=== PATIENT | female | born 1980 | race Caucasian/White ===

== ENCOUNTER → 2021-04-07 | Outpatient (CLI) | payer OTHER | LOC: LAB 12:27 | DX: N39.0 Urinary tract infection, site not specified (principal); Z97.5 Presence of (intrauterine) contraceptive device ==

== ENCOUNTER → 2021-10-20 | Outpatient (CLI) | payer OTHER ==
[2021-10-20 12:57] LABS: BASO # 0.05 K/mm3 (0.02-0.10); EOS % 4.1 % (1.0-5.0); HEMATOCRIT 39.2 % (37.0-47.0); HEMOGLOBIN 12.6 g/dL (12.5-16.0); LYMPH# 2.03 K/mm3 (1.50-4.00); MEAN CELL VOLUME 83 fl (78-100); MEAN CORPUSCULAR HEMOGLOBIN 27 pg (27-31); MEAN CORPUSCULAR HGB CONC 32 g/dL (33-37); MONO # 0.54 K/mm3 (0.20-0.80); NEU # 4.31 K/mm3 (1.40-6.50); PLATELET COUNT 379 K/mm3 (130-400); RED BLOOD COUNT 4.75 M/mm3 (4.10-5.30); RED CELL DISTRIBUTION WIDTH 15.9 % (11.5-14.5); WHITE BLOOD COUNT 7.2 K/mm3 (4.8-10.8)
[2021-10-20 13:14] LABS: ALBUMIN 3.9 g/dL (3.5-5.0); POTASSIUM 4.1 mmol/L (3.5-5.1)
[2021-10-20 13:15] LABS: CALCIUM 9.5 mg/dL (8.3-10.5)
[2021-10-20 13:18] LABS: TOTAL BILIRUBIN 0.3 mg/dL (0.2-1.2)
== END ==
LOC: LAB 12:22
PROVIDERS: Family Medicine
DX: Z00.00 Encounter for general adult medical examination without abnormal findings (principal); E78.5 Hyperlipidemia, unspecified; F90.0 Attention-deficit hyperactivity disorder, predominantly inattentive type; I34.1 Nonrheumatic mitral (valve) prolapse; E66.01 Morbid (severe) obesity due to excess calories; M25.562 Pain in left knee; M25.561 Pain in right knee

== ENCOUNTER → 2022-03-31 | Outpatient (CLI) | payer OTHER | LOC: LAB 09:11 | DX: Z20.822 Contact with and (suspected) exposure to COVID-19 (principal) ==

== ENCOUNTER → 2022-04-12 | Outpatient (CLI) | payer OTHER | LOC: RAD 16:27 | DX: S89.92XA Unspecified injury of left lower leg, initial encounter (principal); X58.XXXA Exposure to other specified factors, initial encounter ==

== ENCOUNTER → 2023-04-14 | Outpatient (CLI) | payer OTHER | LOC: LAB 11:45 | DX: M51.9 Unspecified thoracic, thoracolumbar and lumbosacral intervertebral disc disorder (principal); E55.9 Vitamin D deficiency, unspecified ==

== ENCOUNTER 2023-07-14 06:29 | Emergency (ER) | payer OTHER ==
[~2023-07-14] VITALS: Ht 160 cm; Wt 104.5 kg
[~2023-07-14 06:29] MED LIST: DULOXETINE30 MG PO; MIXED AMPHETAMI15 M1 PO; ONDANSETRON HYDR4 MG PO; OXYCODONE HYDROC5 M1 PO; PREDNISONE20 M1 PO; TRAMADOL 50 MG TAB PO; ZANAFLEX4 M1 PO
[2023-07-14 07:52] LABS: BASO # 0.03 K/mm3 (0.02-0.10); EOS # 0.24 K/mm3 (0.04-0.40); EOS % 2.1 % (1.0-5.0); HEMATOCRIT 43.6 % (37.0-47.0); HEMOGLOBIN 14.5 g/dL (12.5-16.0); MEAN CELL VOLUME 89 fl (78-100); MEAN CORPUSCULAR HEMOGLOBIN 30 pg (27-31); MEAN CORPUSCULAR HGB CONC 33 g/dL (33-37); MEAN PLATELET VOLUME 9.7 fl (7.4-10.4); MONO # 0.81 K/mm3 (0.20-0.80); NEU # 8.22 K/mm3 (1.40-6.50); PLATELET COUNT 379 K/mm3 (130-400); RED BLOOD COUNT 4.88 M/mm3 (4.10-5.30); RED CELL DISTRIBUTION WIDTH 13.6 % (11.5-14.5); WHITE BLOOD COUNT 11.6 K/mm3 (4.8-10.8)
[2023-07-14 08:00] LABS: URINE APPEARANCE HAZY; URINE COLOR YELLOW
[2023-07-14 08:01] LABS: URINE BILIRUBIN 1+ (NEGATIVE); URINE BLOOD NEGATIVE (NEGATIVE); URINE GLUCOSE NEGATIVE (NEGATIVE); URINE KETONE TRACE (NEGATIVE); URINE LEUKOCYTE ESTERASE TRACE (NEGATIVE); URINE NITRATE NEGATIVE (NEGATIVE); URINE PROTEIN(semi-quant) 3+ (NEGATIVE)
[2023-07-14 08:02] LABS: ALBUMIN 3.8 g/dL (3.5-5.0); URINE MUCUS PRESENT (NOT PRESENT)
[2023-07-14 08:04] LABS: CALCIUM 8.9 mg/dL (8.3-10.5)
[2023-07-14 08:05] LABS: TOTAL PROTEIN 6.4 g/dL (6.4-8.3)
[2023-07-14 08:07] LABS: TOTAL BILIRUBIN 0.7 mg/dL (0.2-1.2)
[2023-07-14 08:21] LABS: D-DIMER 0.43 mg/L FEU (0.15-0.50)
[2023-07-14] MEDS ORDERED: MACROBID 100 M100 MG PO (08:25)
[2023-07-14 09:16] VITALS: BP 111/64
== END 2023-07-14 09:18 | disposition home or self-care (01) ==
LOC: ED 06:29
PROVIDERS: Physician Assistant
DX: N39.0 Urinary tract infection, site not specified (principal); S70.211A Abrasion, right hip, initial encounter; S80.811A Abrasion, right lower leg, initial encounter; W10.9XXA Fall (on) (from) unspecified stairs and steps, initial encounter; X50.1XXA Overexertion from prolonged static or awkward postures, initial encounter; W22.8XXA Striking against or struck by other objects, initial encounter; Y92.009 Unspecified place in unspecified non-institutional (private) residence as the place of occurrence of the external cause
CPT/HCPCS: J0696

== ENCOUNTER 2023-07-18 02:03 | Emergency (ER) | payer OTHER ==
[~2023-07-18] VITALS: Ht 160 cm; Wt 107.4 kg
[~2023-07-18 02:03] MED LIST changes: +MACROBID 100 M100 MG PO
[2023-07-18 03:47] LABS: ALBUMIN 3.8 g/dL (3.5-5.0); SODIUM 140 mmol/L (136-145)
[2023-07-18 03:50] LABS: GLUCOSE 98 mg/dL (65-105); TOTAL PROTEIN 6.2 g/dL (6.4-8.3)
[2023-07-18 03:51] LABS: CARBON DIOXIDE 25 mmol/L (22-29)
[2023-07-18 03:52] LABS: BASO # 0.01 K/mm3 (0.02-0.10); EOS # 0.17 K/mm3 (0.04-0.40); EOS % 1.6 % (1.0-5.0); HEMATOCRIT 40.5 % (37.0-47.0); HEMOGLOBIN 13.4 g/dL (12.5-16.0); LYMPH# 2.16 K/mm3 (1.50-4.00); MEAN CELL VOLUME 90 fl (78-100); MEAN CORPUSCULAR HEMOGLOBIN 30 pg (27-31); MEAN CORPUSCULAR HGB CONC 33 g/dL (33-37); MEAN PLATELET VOLUME 10.5 fl (7.4-10.4); MONO # 0.75 K/mm3 (0.20-0.80); NEU # 7.66 K/mm3 (1.40-6.50); RED BLOOD COUNT 4.52 M/mm3 (4.10-5.30); RED CELL DISTRIBUTION WIDTH 13.6 % (11.5-14.5); TOTAL BILIRUBIN 0.5 mg/dL (0.2-1.2); WHITE BLOOD COUNT 10.8 K/mm3 (4.8-10.8)
[2023-07-18 03:55] LABS: AST-SGOT 14 U/L (5-34)
[2023-07-18 03:56] LABS: ALT/SGPT 13 U/L (0-55)
[2023-07-18 04:04] LABS: TROPONIN-I < 0.030 ng/mL (<0.030)
[2023-07-18 04:05] LABS: URINE APPEARANCE HAZY; URINE BILIRUBIN NEGATIVE (NEGATIVE); URINE BLOOD NEGATIVE (NEGATIVE); URINE COLOR YELLOW; URINE GLUCOSE NEGATIVE (NEGATIVE); URINE KETONE NEGATIVE (NEGATIVE); URINE LEUKOCYTE ESTERASE NEGATIVE (NEGATIVE); URINE NITRATE NEGATIVE (NEGATIVE); URINE PROTEIN(semi-quant) NEGATIVE (NEGATIVE)
[2023-07-18 04:06] LABS: URINE MUCUS PRESENT (NOT PRESENT)
[2023-07-18 04:45] VITALS: BP 121/80
== END 2023-07-18 05:08 | disposition home or self-care (01) ==
LOC: ED 02:03
PROVIDERS: Physician Assistant
DX: S06.0XAA Concussion with loss of consciousness status unknown, initial encounter (principal); W18.30XA Fall on same level, unspecified, initial encounter; W22.8XXA Striking against or struck by other objects, initial encounter
CPT/HCPCS: J1630; J7030

== ENCOUNTER → 2023-12-04 | Outpatient (CLI) | payer BC, OTHER | LOC: LAB 18:36 | DX: N39.0 Urinary tract infection, site not specified (principal) ==

== ENCOUNTER → 2024-03-05 | Outpatient (CLI) | payer BC, OTHER ==
[~2024-03-05] MED LIST changes: +NS 1,000 ML IV SCH; +cefTRIAXone 1 G in Water For Injection,Sterile 10 ML IV SCH
[2024-03-05 10:05] VITALS: BP 127/69
[2024-03-05 10:30] LABS: BASO # 0.02 K/mm3 (0.02-0.10); EOS # 0.19 K/mm3 (0.04-0.40); EOS % 2.5 % (1.0-5.0); HEMATOCRIT 44.8 % (37.0-47.0); HEMOGLOBIN 14.6 g/dL (12.5-16.0); LYMPH# 1.88 K/mm3 (1.50-4.00); MEAN CELL VOLUME 90 fl (78-100); MEAN CORPUSCULAR HEMOGLOBIN 29 pg (27-31); MEAN CORPUSCULAR HGB CONC 33 g/dL (33-37); MONO # 0.49 K/mm3 (0.20-0.80); NEU # 4.99 K/mm3 (1.40-6.50); PLATELET COUNT 344 K/mm3 (130-400); RED CELL DISTRIBUTION WIDTH 13.2 % (11.5-14.5); WHITE BLOOD COUNT 7.6 K/mm3 (4.8-10.8)
[2024-03-05 10:31] LABS: ALBUMIN 3.9 g/dL (3.5-5.0)
[2024-03-05 10:32] LABS: CALCIUM 9.2 mg/dL (8.3-10.5)
[2024-03-05 10:33] LABS: TOTAL PROTEIN 6.6 g/dL (6.4-8.3)
[2024-03-05 10:35] LABS: TOTAL BILIRUBIN 0.4 mg/dL (0.2-1.2)
[2024-03-05 10:55] LABS: PH-URINE 5.5 (5.0 - 8.0); URINE APPEARANCE CLOUDY (CLEAR); URINE BILIRUBIN 1+ (NEGATIVE); URINE COLOR YELLOW (YELLOW); URINE GLUCOSE NEGATIVE (NEGATIVE); URINE KETONE NEGATIVE (NEGATIVE); URINE PROTEIN(semi-quant) NEGATIVE (NEGATIVE)
[2024-03-05 10:56] LABS: URINE BLOOD NEGATIVE (NEGATIVE); URINE LEUKOCYTE ESTERASE NEGATIVE (NEGATIVE); URINE NITRATE NEGATIVE (NEGATIVE)
[2024-03-05 11:41] VITALS: BP 146/92
== END ==
LOC: AMSURD 09:42
DX: N39.0 Urinary tract infection, site not specified (principal); E86.0 Dehydration; R53.1 Weakness; R20.2 Paresthesia of skin
CPT/HCPCS: J0696; J7030